=== PATIENT | male | born 1960 | race Caucasian/White ===

== ENCOUNTER 2017-03-02 10:07 | Emergency (ER) | payer SELFPAY ==
[2017-03-02] MEDS: Diph,Pert(Acell),Tet Vac 0.5 ML SYR IM ONE (10:34)
[2017-03-02] MEDS: CEPHALEXIN 500 MG CAPSULE PO STA (10:34)
--- NOTE | 2017-03-02 10:35 | Emergency Department Record ---
History of Present Illness - General Chief Complaint: Laceration(s) Stated Complaint: CRUSH INJURY TO FINGER Time Seen by Provider: 03/02/17 10:20 Source: Patient Mode of Arrival: Ambulatory Limitations: No limitations - History of Present Illness Initial Commments: The patient cut the end of his L 2nd finger at work when it was crushed between to heavy objects. He states the finger is numb and his Td is not UTD. Onset/Timin -: Hour(s) Place: Work Context: Accidental, Crush injury Associated Symptoms: Loss of feeling/numbness Treatments Prior to Arrival: Bandage, Cold therapy - Related Data Hx Tetanus Toxoid Vaccination: Yes Previous Rx's Medication Instructions Recorded Cephalexin [Keflex] 500 mg PO QID #28 cap 03/02/17 Hydrocodone/Acetaminophen [[place] 1 - 2 each PO QID #20 tablet 03/02/17 5-325 Tablet] Allergies Allergy/AdvReac Type Severity Reaction Status Date / Time No Known Drug Allergies Allergy Verified 03/02/17 10:14 Travel Screening - Travel/Exposure Within Last 30 Days Have you traveled within the last 30 days?: No Past Medical History - SOCIAL HISTORY Smoking Status: Light tobacco smoker (<10/day) Alcohol Use: None Drug Use: None - RESPIRATORY Hx Respiratory Disorders: No - CARDIOVASCULAR Hx Cardio Disorders: No - NEURO Hx Neuro Disorders: No - GI Hx GI Disorders: No - Hx Genitourinary Disorders: No - ENDOCRINE Hx Endocrine Disorders: No - MUSCULOSKELETAL Hx Musculoskeletal Disorders: Yes - PSYCH Hx Psych Problems: No - HEMATOLOGY/ONCOLOGY Hx Hematology/Oncology Disorders: No Family Medical History Any Significant Family History?: No Physical Exam - General General Appearance: Alert, Cooperative, No acute distress - Extremities Extremities exam: negative: Normal inspection (There is a 1.5 cm laceration to the L 2nd finger fingerpad. The nail is not involved. The patient has normal flexion and extension to the MCP and DIP joints. The finger pad is numb to touch.) Image of Finger Tip: 1 - 1.5 cm flap lac. Course Vital Signs 03/02/17 10:15 Temperature 98.0 F Pulse Rate [ 96 H Pulse Ox Probe] Respiratory 20 Rate Blood Pressure 141/77 [Right Arm] Pulse Ox 99 - Reevaluation(s) Reevaluation #1: Procedure note: The L 2nd finger was anesth. with 3 cc's Lido 1% and Sensoricaine. The finger was prepped with betadine and lavaged with sterile saline. There was no bone or tendon found in the wound. The lac was basically a skin flap peeled back from the pad. The wound was then closed with 5 4.0 nylon sutures. 03/02/17 11:14 03/02/17 11:24 Reevaluation #2: The patient was observed for 1/2 hour after the suturing and the finger pad was mildly dusky persistently. I did discuss the issues with the patient and the fact that he could end up loosing the skin over the pad but only time will tell. 03/02/17 11:24 03/02/17 12:47 Reevaluation #3: I also did contact Dr. Márquez and he does accept the patient. 03/02/17 12:47 Medical Decision Making - Data Complexity MDM Data: X-Ray Ordered and/or Reviewed - Radiology Data Radiology results: Report reviewed (L 2nd finger: Distal tuft fx.) Disposition Disposition: Discharge Clinical Impression: Finger injury Qualifiers: Encounter type: initial encounter Laterality: left Qualified Code(s): S69.92XA - Unspecified injury of left wrist, hand and finger(s), initial encounter Disposition: Home, Self-Care Condition: (2) Stable Instructions: Laceration (ED) Additional Instructions: Keep dry for 2 days then wash daily and keep bandaged during the day. Keep the finger splint in place. Please call Dr. áMrquez for a F/U appointment later this week or early next week. Take the Keflex and [place] as directed. Please return to the ER in 2 days for a wound check and to have the Tube gauze removed. Sutures out in 10 days. Prescriptions: Cephalexin [Keflex] 500 mg PO QID #28 cap Hydrocodone/Acetaminophen [[place] 5-325 Tablet] 1 - 2 each PO QID #20 tablet Referrals: ZOHREH MÁRQUEZ M.D. [MEDICAL DOCTOR] - Forms: Patient Portal Access Time of Disposition: 11:32 Quality - Quality Measures Quality Measures: N/A - Blood Pressure Screening View Details: Yes Does Patient Have Any of the Following: No Blood Pressure Classification: Hypertensive Reading Systolic Measurement: 141 Diastolic Measurement: 77 Screening for High Blood Pressure: < Pre-Hypertensive BP, F/U Documented > [ G8950] Pre-Hypertensive Follow-up Interventions: Referral to alternative/primary care provider.
[2017-03-02] MEDS ORDERED: BUPIVACAINE 0.25% PF (2.5MG/ML) 10ML VIAL IM ONE (10:37)
--- NOTE | 2017-03-03 08:02 | RADIOLOGY REPORT ---
EXAM: LEFT INDEX FINGER HISTORY: INJURY. TECHNIQUE: Three views of the left index finger were obtained. Comparison: None. FINDINGS: Avulsed comminuted fracture deformity of the distal tuft of the index finger with adjacent soft tissue abnormality. No dislocation. Mild degenerative changes. IMPRESSION: COMMINUTED AVULSED FRACTURE DEFORMITY OF THE DISTAL TUFT. ADJACENT SOFT TISSUE CHANGES WELL. JOB NUMBER: [id number] MTDD
[2017-03-03 11:47] LABS: AMPHETAMINE SCREEN URINE NOT DETECTED; COCAINE SCREEN URINE NOT DETECTED; OPIATE SCREEN URINE NOT DETECTED; PHENCYCLIDINE SCREEN URINE NOT DETECTED; THC SCREEN URINE NOT DETECTED
== END 2017-03-02 11:30 | disposition home or self-care (01) ==
LOC: ER 10:07
DX: S62.631B Displaced fracture of distal phalanx of left index finger, initial encounter for open fracture (principal); S67.191A Crushing injury of left index finger, initial encounter; W31.9XXA Contact with unspecified machinery, initial encounter; Y92.9 Unspecified place or not applicable; Y99.0 Civilian activity done for income or pay
CPT/HCPCS: 12001; 73140; 80305; 90715; 96372; 99283; 99284

== ENCOUNTER 2017-03-04 09:25 | Emergency (ER) | payer OTHER ==
--- NOTE | 2017-03-04 10:07 | Emergency Department Record ---
History of Present Illness - General Chief Complaint: Wound, check Stated Complaint: wOUND RECHECK Time Seen by Provider: 03/04/17 09:31 Source: Patient Mode of arrival: Ambulatory Limitations: No limitations - History of Present Illness Initial Comments: rpt here for recheck and dressing change. finger is doing well Onset/Timin -: Days(s) Returns Today for: Wound recheck Symptoms Since Prior Visit: No new symptoms - Related Data Home Medications Medication Instructions Recorded Confirmed Last Taken Ibuprofen 200 mg Tablet [Motrin 400 mg PO Q4H 03/04/17 03/04/17 03/04/17 200Mg] Previous Rx's Medication Instructions Recorded Cephalexin [Keflex] 500 mg PO QID #28 cap 03/02/17 Hydrocodone/Acetaminophen [[place] 1 - 2 each PO QID #20 tablet 03/02/17 5-325 Tablet] Allergies Allergy/AdvReac Type Severity Reaction Status Date / Time No Known Drug Allergies Allergy Verified 03/02/17 10:14 Travel Screening - Travel/Exposure Within Last 30 Days Have you traveled within the last 30 days?: No - Travel/Exposure Within Last Year Have you traveled outside the [place] in the last year?: No - Additonal Travel Details Have you been exposed to anyone with a communicable illness?: No - Travel Symptoms Symptom Screening: None Review of Systems Reviewed: No additional complaints except as noted below Constitutional: Reports: As per HPI. Denies: Chills, Fever, Malaise, Night sweats, Weakness, Weight change Eyes: Reports: As per HPI. Denies: Eye discharge, Eye pain, Photophobia, Vision change ENT: Reports: As per HPI. Denies: Congestion, Dental pain, Ear pain, Epistaxis , Hearing loss, Throat pain Respiratory: Reports: As per HPI. Denies: Cough, Dyspnea, Hemoptysis, Stridor, Wheezes Cardiovascular: Reports: As per HPI. Denies: Arrhythmia, Chest pain, Dyspnea on exertion, Edema, Murmurs, Orthopnea, Palpitations, Paroxysmal nocturnal dyspnea, Rheumatic Fever, Syncope Endocrine: Reports: As per HPI. Denies: Fatigue, Heat or cold intolerance, Polydipsia, Polyuria Gastrointestinal: Reports: As per HPI. Denies: Abdominal pain, Constipation, Diarrhea, Hematemesis, Hematochezia, Melena, Nausea, Vomiting Genitourinary: Reports: As per HPI. Denies: Dysuria, Frequency, Hematuria, Incontinence, Retention, Testicular pain, Testicular mass, Urgency Musculoskeletal: Reports: As per HPI. Denies: Arthralgia, Back pain, Gout, Joint swelling, Myalgia, Neck pain Skin: Reports: As per HPI. Denies: Bruising, Change in color, Change in hair/ nails, Lesions, Pruritus, Rash Neurological: Reports: As per HPI. Denies: Abnormal gait, Confusion, Headache, Numbness, Paresthesias, Seizure, Tingling, Tremors, Vertigo, Weakness Psychiatric: Reports: As per HPI. Denies: Anxiety, Auditory hallucinations, Depression, Homicidal thoughts, Suicidal thoughts, Visual hallucinations Hematological/Lymphatic: Reports: As per HPI. Denies: Anemia, Blood Clots, Easy bleeding, Easy bruising, Swollen glands Past Medical History - SOCIAL HISTORY Smoking Status: Current every day smoker Alcohol Use: None Drug Use: None - RESPIRATORY Hx Respiratory Disorders: No - CARDIOVASCULAR Hx Cardio Disorders: No - NEURO Hx Neuro Disorders: No - GI Hx GI Disorders: No - Hx Genitourinary Disorders: No - ENDOCRINE Hx Endocrine Disorders: No - MUSCULOSKELETAL Hx Musculoskeletal Disorders: Yes - PSYCH Hx Psych Problems: No - HEMATOLOGY/ONCOLOGY Hx Hematology/Oncology Disorders: No Family Medical History Any Significant Family History?: No Physical Exam - General General Appearance: Alert, Oriented x3, Cooperative, No acute distress - Head Head exam: Normal inspection - Eye Eye exam: Normal appearance, PERRL, EOMI Pupils: Normal accommodation - ENT ENT exam: Normal exam, Mucous membranes moist, Normal external ear exam, Normal orophraynx Ear exam: Normal external inspection. negative: External canal tenderness Nasal Exam: Normal inspection. negative: Discharge, Sinus tenderness Mouth exam: Normal external inspection, Tongue normal Teeth exam: Normal inspection. negative: Dental caries Throat exam: Normal inspection. negative: Tonsillar erythema, Tonsillar exudate - Neck Neck exam: Normal inspection, Full ROM. negative: Tenderness - Respiratory Respiratory exam: Normal lung sounds bilaterally. negative: Respiratory distress - Cardiovascular Cardiovascular Exam: Regular rate, Normal rhythm, Normal heart sounds - GI/Abdominal GI/Abdominal exam: Soft, Normal bowel sounds. negative: Tenderness - Rectal Rectal exam: Deferred - exam: Deferred - Extremities Extremities exam: Full ROM, Normal capillary refill, Tenderness, Other (lac healing well, no evidence of infection) - Back Back exam: Reports: Normal inspection, Full ROM. Denies: Muscle spasm, Rash noted, Tenderness - Neurological Neurological exam: Alert, CN II-XII intact, Normal gait, Oriented X3 - Psychiatric Psychiatric exam: Normal affect, Normal mood - Skin Skin exam: Dry, Intact, Normal color, Warm Course Vital Signs 03/04/17 09:28 Temperature 98.1 F Pulse Rate 94 H Respiratory 16 Rate Blood Pressure 137/83 Pulse Ox 97 Disposition Disposition: Discharge Clinical Impression: Encounter for wound re-check Disposition: Home, Self-Care Condition: (1) Good Instructions: Wound Healing and Your Diet (ED) Additional Instructions: follow up with hand specialist without fail jackie. return sooner if worse Quality - Quality Measures Quality Measures: N/A - Blood Pressure Screening Does Patient Have Any of the Following: No Blood Pressure Classification: Pre-Hypertensive BP Reading Systolic Measurement: 137 Diastolic Measurement: 83 Screening for High Blood Pressure: < Pre-Hypertensive BP, F/U Documented > [ G8950] Pre-Hypertensive Follow-up Interventions: Follow-up with rescreen every year.
== END 2017-03-04 10:30 | disposition home or self-care (01) ==
LOC: ER 09:25
DX: S62.631B Displaced fracture of distal phalanx of left index finger, initial encounter for open fracture (principal); S67.191A Crushing injury of left index finger, initial encounter; W31.9XXA Contact with unspecified machinery, initial encounter; Y92.9 Unspecified place or not applicable
CPT/HCPCS: 99282